=== PATIENT | male | born 1930 | race Caucasian/White ===

== ENCOUNTER 2018-08-02 10:09 | Day surgery (SDC) | payer MEDICARE ==
[2018-08-01 11:15] VITALS: BMI 25.5
[2018-08-02] MEDS ORDERED: PROPOFOL 20 ML ONE (11:12)
[2018-08-02] MEDS ORDERED: PROPOFOL 200 MG/20 ML VIAL ONE (11:14)
[2018-08-02 11:49] LABS: #Eosinphils 0.2 thou/uL (0.0-0.7); #Lymphocytes 0.9 thou/uL (1.20-3.40); #Monocytes 0.5 thou/uL (0.11-0.59); %Basophils 0.5 % (0.0-1.0); %Eosinophils 3.8 % (0.0-10.0); %Lymphocytes 15.8 % (21.0-51.0); %Monocytes 9.5 % (0.0-10.0); %Neutrophils 70.5 % (42.0-75.0); Hemoglobin 14.5 g/dL (14.0-18.0); Mean Corpuscular HGB CONC 33.7 g/dL (32.0-36.0); Mean Corpuscular Hemoglobin 30.3 pg (27.0-31.0); Mean Corpuscular Volume 89.8 fL (78.0-98.0); Mean Platelet Volume 8.2 fL (7.4-10.4); Platelet Count 111 thou/uL (130-400); RBC Distribution Width 13.3 % (11.5-14.5); Red Blood Cell (RBC) Count 4.78 mill/uL (4.70-6.10); White Blood Cell (WBC) Count 5.6 thou/uL (4.8-10.8)
[2018-08-02 11:53] LABS: INR-International Normal Ratio 1.4
[2018-08-02 11:54] LABS: PTT 35.3 SEC (22.9-36.1)
[2018-08-02 12:03] LABS: Anion Gap 13 mmol/L (10-20); BUN (Urea Nitrogen) 25 mg/dL (8.4-25.7); Calc. Creatinine Clearance 54 mL/min (70-130); Calcium 9.8 mg/dL (7.8-10.44); Carbon Dioxide 26 mmol/L (23-31); Chloride 105 mmol/L (98-107); Estimated GFR-MDRD 63; Glucose 109 mg/dL (83-110); Potassium 4.6 mmol/L (3.5-5.1); Sodium 139 mmol/L (136-145)
--- NOTE | 2018-08-02 16:17 | OP ---
DATE OF PROCEDURE: 08/02/2018 PROCEDURES PERFORMED: Known invasive programmed stimulation and arrhythmia paced termination. REASON FOR PROCEDURE: Mr. Soto is an 87-year-old male with prior history of ventricular tachycardia, Bi-V ICD in place, prior cardiomyopathy, who presented with sustained atrial tachycardia/atrial flutter. YARITZA prior to the procedure demonstrates no intracardiac clots, here for ICD guided termination of the arrhythmia. DESCRIPTION OF PROCEDURE: ICD was interrogated, reveals [employer] Viva XT [employer]IOR [employer]ELOPER-D Bi-V ICD. Battery longevity 3.1 years. Lead parameters are adequate, impedance 456, 456, and 475 ohms respectively. LV lead is 2.75 V at 0.5 milliseconds. Good captures in RV and RA leads are seen. The atrial fibrillation is ongoing for about 3 weeks by now. Interrogation arrhythmia reveals cycle length about 240 milliseconds. Burst atrial pacing was delivered at 180 milliseconds, which promptly terminated the atrial tachycardia/flutter and normal sinus rhythm . CONCLUSION: 1. Successful cardioversion with overdrive atrial pacing. 2. Normal function on Bi-V ICD. 3. Reprogramming the ICD performed turning atrial antitachycardia pacing therapies. 4. Routine followup of arrhythmias in the future and continue oral anticoagulation. Job ID: [id number]
--- NOTE | 2018-08-03 15:44 | ECHO ---
REFERRING PHYSICIAN: Dr. Morocho REASON FOR PROCEDURE: The patient is an 87-year-old man who has history of CHF and ischemic cardiomyopathy, prior history o f murmur, SVT, AICD in place. Patient recently developed nonsustained atrial fibrillation/atrial tach ycardia. He has been placed on Eliquis about two weeks ago. He is here for YARITZA to rule out intracardi ac clots. PROCEDURE: The patient received Propofol by Anesthesia specialist. After adequate level of sedation achieved, a standard transesophageal echocardiogram probe was passed into the esophagus without diff iculty. Patient tolerated the procedure well, no complications noted. RESULTS: Left atrium is moderately enlarged about 4.5 cm in horizontal diameter. The left atrial appendage contains no clots. Four out of four pulmonary veins were seen. No stenosis noted. Interatrial septum is mobile with no definite shunt identified. The mitral valve has mild cent ral regurgitation. Left ventricular systolic function is 45-50% estimated. The right sided chambers slightly dilated. Pacemaker/ICD wires were identified in right sided chambers including the CS. No pe ricardial effusion noted. Mild to moderate tricuspid regurgitation is seen. The aortic valve has thre e leaflets without regurgitation or stenosis. The visualized portion of ascending and descending aort a with significant atheroma but no mobile atheroma, aneurysm or dissection is identified. CONCLUSION: 1. No intracardiac clots. 2. Mildly reduced LV systolic function. 3. Mild to moderate tricuspid, mild mitral regurgitation. No other significant valvular heart diseas e seen. 4. ICD wires in right sided chamber in adequate position. PLAN: Proceed with the conversion to sinus rhythm.
== END 2018-08-02 14:40 | disposition home or self-care (01) ==
LOC: CCL 10:09
PROVIDERS: ATTEND Internal Medicine Cardiovascular Disease
PROC: 5A2204Z Restoration of Cardiac Rhythm, Single (ICD-10-PCS; principal; 2018-08-02)
PROC: B24BZZ4 Ultrasonography of Heart with Aorta, Transesophageal (ICD-10-PCS; 2018-08-02)
DX: I47.1 Supraventricular tachycardia (principal); I48.0 Paroxysmal atrial fibrillation; I48.92 Unspecified atrial flutter; I25.10 Atherosclerotic heart disease of native coronary artery without angina pectoris; I25.5 Ischemic cardiomyopathy; I50.22 Chronic systolic (congestive) heart failure; Z85.46 Personal history of malignant neoplasm of prostate; Z95.810 Presence of automatic (implantable) cardiac defibrillator; Z79.01 Long term (current) use of anticoagulants; Z79.82 Long term (current) use of aspirin; Z79.899 Other long term (current) drug therapy
CPT/HCPCS: 80048; 85025; 85610; 85730; 92960; 93312; J2704

== ENCOUNTER 2018-09-15 11:36 | Emergency (ER) | payer MEDICARE ==
[2018-09-15 12:34] LABS: #Eosinphils 0.2 thou/uL (0.0-0.7); #Lymphocytes 0.6 thou/uL (1.20-3.40); #Monocytes 0.5 thou/uL (0.11-0.59); #Neutrophils 5.1 thou/uL (1.40-6.50); %Eosinophils 3.7 % (0.0-10.0); %Lymphocytes 9.8 % (21.0-51.0); %Monocytes 7.2 % (0.0-10.0); %Neutrophils 79.3 % (42.0-75.0); Hemoglobin 13.9 g/dL (14.0-18.0); Mean Corpuscular HGB CONC 35.3 g/dL (32.0-36.0); Mean Corpuscular Hemoglobin 31.1 pg (27.0-31.0); Mean Corpuscular Volume 88.2 fL (78.0-98.0); Mean Platelet Volume 7.9 fL (7.4-10.4); Platelet Count 145 thou/uL (130-400); RBC Distribution Width 13.3 % (11.5-14.5); Red Blood Cell (RBC) Count 4.47 mill/uL (4.70-6.10); White Blood Cell (WBC) Count 6.4 thou/uL (4.8-10.8)
[2018-09-15 12:42] LABS: ALT (SGPT) 14 U/L (8-55); AST (SGOT) 17 U/L (5-34); Albumin 4.4 g/dL (3.4-4.8); Alkaline Phosphatase 69 U/L (40-150); Anion Gap 11 mmol/L (10-20); BUN (Urea Nitrogen) 24 mg/dL (8.4-25.7); Bilirubin, Total 1.2 mg/dL (0.2-1.2); Calc. Creatinine Clearance 0 mL/min (70-130); Carbon Dioxide 27 mmol/L (23-31); Chloride 104 mmol/L (98-107); Estimated GFR-MDRD 60; Globulin 2.2 g/dL (2.4-3.5); Glucose 106 mg/dL (83-110); Potassium 4.4 mmol/L (3.5-5.1); Protein, Total 6.6 g/dL (5.8-8.1); Sodium 138 mmol/L (136-145)
[2018-09-15 12:44] LABS: Blood, Urine Large (Negative); Nitrite Negative (Negative)
[2018-09-15 12:45] LABS: Bilirubin Unable to Interpret (Negative); Clarity Opaque (Clear); Urobilinogen UNABLE TO INTERPRET mg/dL (Less than 2)
[2018-09-15 12:50] LABS: Leukocyte Unable to Interpret (Negative)
[2018-09-15 12:51] LABS: Glucose, Urine (Dipstick) Negative (Negative); Protein, Urine (Dipstick) 100 mg/dL (Neg-Trace)
[2018-09-15 12:53] LABS: RBC/HPF Greater than 50 HPF (0-3)
[2018-09-15 12:54] LABS: Bacteria/HPF None Seen HPF (None Seen); Squamous Epithelial None Seen HPF (0-3); WBC/HPF 0-3 HPF (0-3)
== END 2018-09-15 13:46 | disposition home or self-care (01) ==
LOC: ERS 11:36
DX: R31.9 Hematuria, unspecified (principal); I48.91 Unspecified atrial fibrillation; I25.2 Old myocardial infarction; Z79.899 Other long term (current) drug therapy
CPT/HCPCS: 36415; 80053; 81003; 81015; 85025; 87086; 99283

== ENCOUNTER 2018-10-08 13:17 | Outpatient (CLI) | payer MEDICARE ==
[2018-10-08 15:12] LABS: INR-International Normal Ratio 1.3; PTT 31.8 SEC (22.9-36.1); Prothrombin Time 15.8 SEC (12.0-14.7)
[2018-10-08 15:26] LABS: Anion Gap 15 mmol/L (10-20); BUN (Urea Nitrogen) 22 mg/dL (8.4-25.7); Calc. Creatinine Clearance 0 mL/min (70-130); Calcium 9.4 mg/dL (7.8-10.44); Carbon Dioxide 25 mmol/L (23-31); Chloride 105 mmol/L (98-107); Estimated GFR-MDRD 55; Glucose 105 mg/dL (83-110); Potassium 4.2 mmol/L (3.5-5.1); Sodium 141 mmol/L (136-145)
[2018-10-08 15:40] LABS: Hemoglobin 13.1 g/dL (14.0-18.0); Mean Corpuscular HGB CONC 33.5 g/dL (32.0-36.0); Mean Corpuscular Hemoglobin 29.9 pg (27.0-31.0); Mean Corpuscular Volume 89.4 fL (78.0-98.0); Platelet Count 115 thou/uL (130-400); RBC Distribution Width 13.5 % (11.5-14.5); Red Blood Cell (RBC) Count 4.38 mill/uL (4.70-6.10); White Blood Cell (WBC) Count 5.5 thou/uL (4.8-10.8)
== END 2018-10-08 13:18 | disposition home or self-care (01) ==
LOC: LABBT 13:17
PROVIDERS: ATTEND Internal Medicine Cardiovascular Disease
DX: Z01.818 Encounter for other preprocedural examination (principal); I48.91 Unspecified atrial fibrillation
CPT/HCPCS: 80048; 85027; 85610; 85730; 93005; 93010

== ENCOUNTER 2018-10-14 06:34 | Day surgery (SDC) | payer MEDICARE ==
[2018-10-08 13:47] VITALS: BMI 25.8
[2018-10-14] MEDS ORDERED: PROPOFOL 200 MG/20 ML VIAL ONE (14:31)
--- NOTE | 2018-10-15 13:38 | ECHO ---
REFERRING PHYSICIAN: Dr. Chino Morocho REASON FOR PROCEDURE: The patient is an 87-year-old man with history of ischemic cardiomyopathy, reduced LVED, IDC in place, ventricular tachycardia, paroxysmal atrial fibrillation, status post Watchman device placement on 08/30/18. Is here for a six week post Watchman device placement YARITZA. PROCEDURE: The patient received Propofol by Anesthesia specialist. After adequate level of sedation achieved, a standard transesophageal echocardiogram probe was passed into the esophagus without difficulty. Patient tolerated the procedure well, no complications noted. RESULTS: Left atrium is moderately enlarged about 4.8 cm in horizontal diameter. The left atrial appendage well visualized and has an adequately placed Watchman device in it. Significant opacification noted posterior to the Watchman device with a very small area suboptimally opacified with echo lucency. There is also a very small 0.1 mm leak noted not clearly tracking posterior to the Watchman device. The mitral valve has mild regurgitation. The interatrial septum has a small residual leak at the site of the triseptal puncture. Four out of four pulmonary veins were well seen. LV systolic function is mildly reduced. LV of about 45% noted with segmental wall motion abnormalities. The right sided chambers with ICD wires in appropriate positions. Mild to moderate tricuspid regurgitation without elevated trans TR velocities. No pericardial effusion noted. The aortic valve has three leaflets without regurgitation or stenosis. The pulmonary valve is not well visualized. The visualized portion of ascending and descending aorta without aneurysm, dissection and only mild adherent atheroma noted in the descending aorta. CONCLUSION: 1. Adequately placed Watchman device with tiny leak adjacent the device with some areas of echo lucency posterior to the device also noted suggesting of potential mild flow although not clearly demonstrated posterior device. 2. Mild to moderate reduced LVEF. 3. Mild MT, mild to moderate TR. 4. ICD wires in the right sided chambers. 5. 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 PLAN: Switch from Anticoagulant to aspirin and Plavix. Consider three month YARITZA follow -up. Send CD for review to Dr. Ghotra. CELESTE
== END 2018-10-14 10:13 | disposition home or self-care (01) ==
LOC: CCL 06:34
PROVIDERS: ATTEND Internal Medicine Cardiovascular Disease
PROC: B24BZZ4 Ultrasonography of Heart with Aorta, Transesophageal (ICD-10-PCS; principal; 2018-10-14)
DX: I48.0 Paroxysmal atrial fibrillation (principal); I25.5 Ischemic cardiomyopathy; I70.0 Atherosclerosis of aorta; Z79.01 Long term (current) use of anticoagulants; Z79.82 Long term (current) use of aspirin; Z79.899 Other long term (current) drug therapy; Z95.1 Presence of aortocoronary bypass graft; Z95.5 Presence of coronary angioplasty implant and graft; Z95.810 Presence of automatic (implantable) cardiac defibrillator; Z95.818 Presence of other cardiac implants and grafts
CPT/HCPCS: 93312; J2704

== ENCOUNTER 2018-12-27 09:09 | Inpatient (IN) | payer MEDICARE ==
[2018-12-27 10:40] LABS: ALT (SGPT) 20 U/L (8-55); AST (SGOT) 26 U/L (5-34); Albumin 4.3 g/dL (3.4-4.8); Alkaline Phosphatase 72 U/L (40-110); Anion Gap 8 mmol/L (10-20); BUN (Urea Nitrogen) 21 mg/dL (8.4-25.7); Bilirubin, Total 0.8 mg/dL (0.2-1.2); Calc. Creatinine Clearance 0 mL/min (70-130); Calcium 9.5 mg/dL (7.8-10.44); Carbon Dioxide 32 mmol/L (23-31); Chloride 105 mmol/L (98-107); Estimated GFR-MDRD 55; Glucose 145 mg/dL (83-110); Potassium 4.3 mmol/L (3.5-5.1); Protein, Total 6.3 g/dL (5.8-8.1); Sodium 141 mmol/L (136-145)
[2018-12-27 10:46] LABS: #Eosinphils 0.2 thou/uL (0.0-0.7); #Lymphocytes 0.6 thou/uL (1.20-3.40); #Monocytes 0.4 thou/uL (0.11-0.59); #Neutrophils 5.4 thou/uL (1.40-6.50); %Basophils 0.3 % (0.0-1.0); %Eosinophils 2.3 % (0.0-10.0); %Neutrophils 82.4 % (42.0-75.0); Eosinophils 4 % (0-10); Hemoglobin 13.9 g/dL (14.0-18.0); Lymphocytes 8 % (21-51); MDiff Complete? YES; Mean Corpuscular HGB CONC 33.5 g/dL (32.0-36.0); Mean Corpuscular Hemoglobin 29.5 pg (27.0-31.0); Mean Corpuscular Volume 88.1 fL (78.0-98.0); Monocytes 3 % (0-10); Neutrophil 85 % (42-75); Platelet Count 114 thou/uL (130-400); Platelet Morphology Comment Appears Decreased; RBC Distribution Width 13.3 % (11.5-14.5); RBC Morphology Normal; Red Blood Cell (RBC) Count 4.69 mill/uL (4.70-6.10); White Blood Cell (WBC) Count 6.6 thou/uL (4.8-10.8)
--- NOTE | 2018-12-27 12:09 | CT ---
CT Brain WO Con HISTORY: Fall with head injury COMPARISON: None. FINDINGS: There is generalized ventricular and sulcal prominence. There are no signs of intracerebral hemorrhage or extra-axial fluid collections. The mastoid air cells and visualized sinuses are clear. IMPRESSION: No acute intracranial abnormalities.
--- NOTE | 2018-12-27 12:17 | CT ---
Exam: CT cervical spine without contrast HISTORY: Trauma. Pain. COMPARISON: None FINDINGS: No craniocervical dissociation. Appropriate alignment of the lateral masses of C1 and C2. Intact odon toid process Appropriate alignment of the facets. Straightening of normal cervical lordosis may be due to patient position, muscle spasm or cervical co llar. Soft tissue neck structures: No mass, lymphadenopathy or hematoma. No prevertebral soft tissue swelli ng. Upper mediastinum and lung apices: Probable chronic emphysematous changes lung apices. Thyroid gland: Mild heterogeneity. Consider nonemergent thyroid ultrasound. Central spinal canal: There are varying degrees of central canal stenosis and neural foraminal narrow ing on the basis of degenerative change. Evaluation is limited by technique. Vertebral bodies: Cervical spine vertebral body height is maintained. No fracture. IMPRESSION: 1. No cervical spine fracture 2. Straightening of normal cervical lordosis. There is concern for ligamentous injury, consider MRI
[2018-12-27] MEDS ORDERED: Amiodarone 150 MG/3 ML VIAL ONE (13:16)
[2018-12-27] MEDS ORDERED: Amiodarone 450 MG, Admixture Fee 1 EACH in Dextrose 5% in Water 250 ML IVPB SCH (13:30)
[2018-12-27 14:37] LABS: CKMB 13.3 ng/mL (0-6.6)
--- NOTE | 2018-12-27 15:29 | HP ---
PRIMARY CARE PHYSICIAN: Dr. Mike Heart. REASON FOR ADMISSION: Cardiogenic syncope. HISTORY OF PRESENT ILLNESS: An 88-year-old male, who has underlying history of cardiomyopathy with AICD in place, who was brought to emergency room for syncopal episode. The patient has cardiomyopathy with EF 25% and is following Dr. Morocho. As per the patient, he had a cardiac arrest, and subsequently, he required defibrillator placement several years ago and never had any problem. Last night, the patient had one episode of syncope, and he fell down from his bed on the floor. This morning, he had similar episode and he passed out and he had a shock by his defibrillator. Subsequently, he was feeling weak. He was experiencing some vague chest discomfort. The patient does not have any good recollection of event, but subsequently, he was brought to ER. In the emergency room, his AICD was interrogated, and he was found with multiple episodes of ventricular tachycardia and ventricular fibrillation. Cardiology was notified as well as Electrophysiology was notified from the ER, and subsequently, we are admitting this patient to telemetry floor for further evaluation and treatment. Routine blood test showed mild thrombocytopenia and significantly elevated troponin. The patient is hemodynamically stable in the emergency room. REVIEW OF SYSTEMS: CONSTITUTIONAL: Negative for weight loss or gain, ability to conduct usual activities. SKIN: Negative for rash, itching. EYES: Negative for double vision, pain. ENT/MOUTH: Negative for nose bleeding, neck stiffness, pain, tenderness. CARDIOVASCULAR: Negative for palpitations, dyspnea on exertion, orthopnea. RESPIRATORY: Negative for shortness of breath, wheezing, cough, hemoptysis, fever or night sweats. GASTROINTESTINAL: Negative for poor appetite, abdominal pain, heartburn, nausea, vomiting, constipation, or diarrhea. GENITOURINARY: Negative for urgency, frequency, dysuria, nocturia. MUSCULOSKELETAL: Negative for pain, swelling. NEUROLOGIC/PSYCHIATRIC: Negative for anxiety, depression. ALLERGY/IMMUNOLOGIC: Negative for skin rash, bleeding tendency. Please see my HPI for pertinent positives and negatives. All other review of systems reviewed and negative except as mentioned in HPI. PAST MEDICAL HISTORY: Coronary artery disease, history of CABG, cardiomyopathy with EF 25%, AICD in place, peripheral vascular disease, hypertension, history of prostate cancer treated with radiation, and dyslipidemia. PAST SURGICAL HISTORY: Coronary artery bypass grafting in 1989, AICD placement and replaced several times, inguinal hernia repair, laparoscopic appendicectomy, coronary catheterization and stent placement, femoral artery stent placement, and cataract surgery. PAST PSYCHIATRIC HISTORY: Reviewed and negative. ALLERGIES: NO KNOWN DRUG ALLERGIES. SOCIAL HISTORY: The patient is . His is present at bedside. They have four kids. He quit smoking 30 years ago. He drinks alcohol in the form of wine occasionally. He denies any other illicit drug abuse. FAMILY HISTORY: Coronary artery disease to both parents, and they in their young age from heart attack. Sisters and brother also from coronary artery disease. EMERGENCY ROOM COURSE: Reviewed. The patient is starting amiodarone drip. CURRENT HOME MEDICATIONS: 1. Coreg 25 mg twice daily. 2. Zocor 10 mg p.o. daily. 3. Lasix 40 mg daily. 4. Digoxin 125 mcg daily. 5. Plavix 75 mg daily. PHYSICAL EXAMINATION: VITAL SIGNS: On arrival, blood pressure 132/76, pulse 78, respiratory rate 18, temperature 98.2, and saturation 99% on room air. Weight 81 kg. GENERAL: The patient is currently alert and awake, in no obvious acute distress. HEENT: Head, normocephalic and atraumatic. Eyes, pupils are round and reactive to light. Extraocular muscles intact. ENT, oropharynx within normal limits. Moist mucous membranes. No oral lesion. No pharyngeal erythema. No exudate. NECK: Supple. No JVD. No thyromegaly. No carotid bruit. No jugular venous distention. LUNGS: Clear to auscultation without any rhonchi or rales. CARDIAC: S1 and S2. Appears regular without any murmur. No gallop. No rub. ABDOMEN: Soft, bowel sounds present. Nontender. Nondistended. No organomegaly. No mass. No suprapubic tenderness. BACK: Unremarkable. No CVA tenderness. EXTREMITIES: Upper extremities, passive movement of all joints is normal. Lower extremities, no edema. Good distal pulsation. SKIN: No skin rash. HEMATOLOGICAL SYSTEM: No lymphadenopathy. NEUROLOGIC: Nonfocal examination. SIGNIFICANT LABORATORY DATA: EKG showing pacemaker rhythm. CT brain based on my review, no acute intracranial process. CT cervical spine, no fracture or dislocation. Straightening of normal cervical lordosis. CBC; WBC 6.6, hemoglobin 13.9, and platelets 114. BMP; sodium 141, potassium 4.3, chloride 105, carbon dioxide 32, anion gap 8, BUN 21, creatinine 1.25, glucose 145, and calcium 9.5. LFT; protein 6.3, albumin 4.3, alkaline phosphatase 72, AST 26, ALT 20, CK-MB 13.3, troponin 1.203. Magnesium 2.3. TSH 1.77. ASSESSMENT AND PLAN: 1. Cardiogenic syncope due to ventricular tachycardia and ventricular fibrillation, status post AICD firing, recurrent episode. 2. Type 2 myocardial infarction. 3. History of cardiomyopathy with AICD in place. 4. Coronary artery disease with history of coronary artery bypass grafting. 5. Hypertension. 6. Dyslipidemia. 7. Thrombocytopenia. PLAN: 1. Full admission to telemetry floor. Cardiology consultation, electrophysiology consultation, amiodarone drip per protocol. After verification of his home medication, we will resume his home medication. Further investigation and treatment will defer to Cardiology. We will do serial cardiac enzymes x3. We will obtain echocardiography to assess EF and other structural abnormality. 2. Code status. The patient is full code. The patient's is surrogate decision maker. 3. DVT prophylaxis. Based on the patient's home medication, we will decide whether the patient is on Eliquis therapy or not. If not, then we will start Lovenox for DVT prophylaxis. 4. GI prophylaxis. Pepcid 20 mg p.o. b.i.d. DISPOSITION PLAN: Based on clinical course, we are expecting the patient's stay in hospital more than 2 midnights. Plan of care discussed with the patient in detail. Job ID: [id number]
[2018-12-27] MEDS ORDERED: Diabetic Tussin 200 MG/10 ML UDCUP PO PRN (16:17)
[2018-12-27] MEDS ORDERED: Metoclopramide HCl 10 MG/2 ML VIAL IVP PRN (16:17)
[2018-12-27] MEDS ORDERED: Nitroglycerin 0.4 MG TAB (25 Tab Bottle) SL PRN (16:17)
[2018-12-27] MEDS ORDERED: Cepastat Lozenges 1 LOZ PO PRN (16:17)
[2018-12-27] MEDS ORDERED: Zolpidem Tartrate 5 MG TAB PO PRN (16:17)
[2018-12-27] MEDS ORDERED: Senokot S 8.6-50 MG TAB PO PRN (16:17)
[2018-12-27] MEDS ORDERED: HYDROcodone/Acetaminophen 5/325 mg Tablet PO PRN (16:17)
[2018-12-27] MEDS ORDERED: Calcium Carbonate 500 MG ChewTAB PO PRN (16:17)
[2018-12-27] MEDS ORDERED: Labetalol HCl 100 MG/20 ML VIAL SLOW IVP PRN (16:17)
[2018-12-27] MEDS ORDERED: Loratadine 10 MG TAB PO PRN (16:17)
[2018-12-27] MEDS ORDERED: Bisacodyl 10 MG SUPP PR PRN (16:17)
[2018-12-27] MEDS ORDERED: Loperamide HCl 2 MG CAP PO PRN (16:17)
[2018-12-27] MEDS ORDERED: Sodium Chloride 0.65% Nasal 44 ML BOT EA NARE PRN (16:17)
[2018-12-27] MEDS ORDERED: Acetaminophen 325 MG TAB PO PRN (16:17)
[2018-12-27 16:38] VITALS: BMI 25.7
--- NOTE | 2018-12-27 19:39 | CON ---
DATE OF CONSULTATION: 12/27/2018 PRIMARY DIRECTOR MARKETING COMMUNICATIONS: Chino Morocho M.D. REASON FOR CONSULTATION: Ventricular tachycardia and fibrillation. HISTORY OF PRESENT ILLNESS: Mr. Soto is a very pleasant 88-year-old white gentleman, who comes to the hospital for syncope. He has an AICD for ischemic cardiomyopathy and had several defibrillator shocks delivered. Last night, he had an episode of syncope. He fell down on the bed on the floor similar episode earlier this morning, had a shock given by his defibrillator. AICD interrogated and had multiple VT and episodes of VF where he received shocks and several more where he received antitachycardia pacing. Successfully getting him back into sinus rhythm. He denies any chest pain, tightness, or pressure. He has had episodes of VT in the past, but they are related to sotalol therapy. Currently, he is not on any antiarrhythmics. PAST MEDICAL HISTORY: 1. Coronary artery disease. 2. Status post CABG. 3. Ischemic cardiomyopathy with an EF of 25%. 4. AICD in place. 5. Peripheral vascular disease. 6. Hypertension. 7. History of prostate cancer, treated with radiation. 8. Hyperlipidemia. PAST SURGICAL HISTORY: 1. CABG in 1988 x4. Most recent heart catheterization that I can find on file is in 1992. He had a vein graft to the right, which was patent, vein graft to an OM1 was patent, vein graft to an OM2 was patent and the LIRA to the LAD was patent. His [place] right was occluded. His [place] OM1 and OM2 was occluded and the LAD was 70% stenosis. 2. AICD placement. 3. Inguinal hernia repair. 4. Laparoscopic appendectomy. 5. A femoral artery stent placement. 6. Cataract surgery. SOCIAL HISTORY: at bedside. Quit smoking 30 years ago. Social alcohol use. No drug use. FAMILY HISTORY: Noncontributory at this age. OUTPATIENT MEDICATIONS: 1. Carvedilol 25 mg b.i.d. 2. Zocor 10 mg a day. 3. Lasix 40 mg a day. 4. Digoxin 125 mcg a day. 5. Plavix 75 mg a day. 6. Entresto 49/51 mg b.i.d. 7. Aspirin 81 a day. 8. CoQ10 200 mg daily. REVIEW OF SYSTEMS: A 12-point review of systems was done, negative unless stated in the history of present illness. PHYSICAL EXAMINATION: VITAL SIGNS: Temperature 97.4, pulse 78, respiratory rate 18, saturating 100% on room air, blood pressure 126/72. GENERAL: Awake, alert, oriented x3. No distress. HEENT: Normocephalic and atraumatic. NECK: Supple. LUNGS: Clear. CARDIOVASCULAR: S1 and S2. No S3 or S4. There is a grade 2/3 systolic murmur at the right upper sternal border. ABDOMEN: Soft, positive bowel sounds. EXTREMITIES: There is a trace edema. SKIN: Warm and dry. LABORATORY DATA: Laboratory work was reviewed. White count of 6, hemoglobin of 13, hematocrit 41, platelet count 114. Chemistries were unremarkable. Troponin was 1.2 and now up to 1.3. TSH is 1.7. ASSESSMENT AND PLAN: 1. Syncope. 2. Ventricular tachycardia and ventricular fibrillation, status post automated implantable cardioverter defibrillator therapy delivered. 3. Smw-PR-dagpzucxg myocardial infarction. 4. Coronary artery disease. 5. Ischemic cardiomyopathy with ejection fraction of 25%. PLAN: 1. Certainly needs an ischemic evaluation with a heart catheterization. We spoke at length about the risks and benefits of the procedure. Risks included, but not limited to stroke, [place], , bleeding, need for blood transfusion, limb loss, organ loss, need for emergent bypass surgery, the patient verbalized understanding of this and agrees to proceed. Right groin access given history of bypass grafting in the past. Would be looking for history for 3 vein grafts and a LIRA to the LAD, vein to the right, a vein to an OM1 and a vein to an OM2. 2. Further recommendations per results of coronary angiogram. 3. Agree with continued amiodarone drip to prevent more VT or VF. 4. We will follow. Job ID: [id number] [facility]
[2018-12-27 20:27] LABS: Troponin I 1.532 ng/mL (< 0.028)
[2018-12-28 05:09] LABS: #Eosinphils 0.2 thou/uL (0.0-0.7); #Lymphocytes 0.7 thou/uL (1.20-3.40); #Monocytes 0.5 thou/uL (0.11-0.59); #Neutrophils 5.5 thou/uL (1.40-6.50); %Basophils 0.5 % (0.0-1.0); %Eosinophils 2.9 % (0.0-10.0); %Monocytes 7.6 % (0.0-10.0); %Neutrophils 78.9 % (42.0-75.0); Hemoglobin 12.5 g/dL (14.0-18.0); Mean Corpuscular Hemoglobin 30.5 pg (27.0-31.0); Mean Corpuscular Volume 87.2 fL (78.0-98.0); Mean Platelet Volume 7.8 fL (7.4-10.4); Platelet Count 102 thou/uL (130-400); RBC Distribution Width 13.3 % (11.5-14.5); Red Blood Cell (RBC) Count 4.11 mill/uL (4.70-6.10)
[2018-12-28 05:14] LABS: Anion Gap 13 mmol/L (10-20); BUN (Urea Nitrogen) 23 mg/dL (8.4-25.7); Calc. Creatinine Clearance 51 mL/min (70-130); Calcium 8.9 mg/dL (7.8-10.44); Carbon Dioxide 21 mmol/L (23-31); Chloride 107 mmol/L (98-107); Estimated GFR-MDRD 60; Glucose 108 mg/dL (83-110); Potassium 4.1 mmol/L (3.5-5.1); Sodium 137 mmol/L (136-145)
[2018-12-28] MEDS: Famotidine 20 MG TAB PO SCH (09:22)
--- NOTE | 2018-12-28 11:14 | PDOC.HOSPP ---
- Subjective Encounter Date: 12/28/18 Encounter Time: 09:00 - Objective Vital Signs & Weight: Vital Signs (12 hours) Temp Pulse Resp BP Pulse Ox 12/28/18 07:44 98.6 F 70 18 104/52 L 95 12/28/18 07:35 95 12/28/18 04:00 97.6 F 78 20 105/68 98 Weight Weight 179 lb I&O: 12/27/18 12/28/18 12/29/18 06:59 06:59 06:59 Intake Total 425 Balance 425 Result Diagrams: 12/28/18 04:36 12/28/18 04:36 Hospitalist ROS - Medication Medications: Active Medications Generic Name Dose Route Start Last Admin Trade Name Freq PRN Reason Stop Dose Admin Famotidine 20 mg 12/28/18 09:00 12/28/18 09:22 Pepcid PO 20 mg DAILY MARIUM Administration Amiodarone HCl 450 mg/ 259 mls @ 0 mls/hr 12/27/18 16:17 12/28/18 00:00 Dextrose/Water IVPB 259 mls INF MARIUM Administration Protocol Per Protocol - Exam General Appearance: NAD Neck: no JVD Heart: RRR Respiratory: CTAB Gastrointestinal: soft Extremities: no edema Neurological: no focal deficits Psychiatric: normal affect Hosp A/P (1) Syncope, cardiogenic Code(s): R55 - SYNCOPE AND COLLAPSE Status: Acute Plan: Due to V-tach.. (2) Cardiomyopathy Code(s): I42.9 - CARDIOMYOPATHY, UNSPECIFIED Status: Acute (3) CAD (coronary artery disease) Code(s): I25.10 - ATHSCL HEART DISEASE OF [place] CORONARY ARTERY W/O ANG PCTRS Status: Acute (4) HTN (hypertension) Code(s): I10 - ESSENTIAL (PRIMARY) HYPERTENSION Status: Acute (5) Thrombocytopenia Code(s): D69.6 - THROMBOCYTOPENIA, UNSPECIFIED Status: Acute (6) Thrombocytopenia Code(s): D69.6 - THROMBOCYTOPENIA, UNSPECIFIED Status: Acute Plan: Etiology unclear.. Patient is not on heparin.. - Plan On Amniodarone drip.. Had AICD in the past.. f/u with cardiology.
[2018-12-28] MEDS: Amiodarone 450 MG in Dextrose 5% in Water 250 ML IVPB SCH ×2 (14:04)
--- NOTE | 2018-12-28 17:44 | PDOC.CPN ---
- Subjective Date: 12/28/18 Time: 17:42 Interval history: No new issues. He has not had any more episodes of VT or VF. - Review of Systems General: denies: fever/chills, weight/appetite/sleep changes, night sweats, fatigue Respiratory: denies: cough, congestion, shortness of breath, exercise intolerance Cardiovascular: denies: chest pain, palpitation, edema, paroxysmal nocturnal dyspnea, orthopnea Gastrointestinal: denies: nausea, vomiting, diarrhea, constipation, abd pain, GI bleeding Musculoskeletal: denies: pain, tenderness, stiffness, swelling, arthritis/ arthralgias Neurological: denies: numbness, syncope, seizure, weakness - Objective Allergies/Adverse Reactions: Allergies Allergy/AdvReac Type Severity Reaction Status Date / Time No Known Drug Allergies Allergy Verified 10/08/18 13:42 Visit Medications: Current Medications Acetaminophen (Tylenol) 650 mg PO Q4H PRN PRN Reason: Headache/Fever/Mild Pain (1-3) Hydrocodone Bitart/Acetaminophen ([place] 5/325) 1 tab PO Q4H PRN PRN Reason: Moderate Pain (4-6) Bisacodyl (Dulcolax) 10 mg SD DAILYPRN PRN PRN Reason: Constipation Calcium Carbonate (Tums) 1,000 mg PO Q4H PRN PRN Reason: Heartburn or Indigestion Famotidine (Pepcid) 20 mg PO DAILY [facility] Last Admin: 12/28/18 09:22 Dose: 20 mg Guaifenesin (Robitussin Sf) 200 mg PO Q4H PRN PRN Reason: Cough Amiodarone HCl 450 mg/ (Dextrose/Water) 259 mls @ 0 mls/hr IVPB INF [facility]; Protocol Last Admin: 12/28/18 14:04 Dose: 259 mls Labetalol HCl (Normodyne) 10 mg SLOW IVP Q4H PRN PRN Reason: SBP > 180 and HR >/= 70 Loperamide HCl (Imodium) 2 mg PO PRN PRN PRN Reason: Diarrhea/Loose Stools Loratadine (Claritin) 10 mg PO DAILYPRN PRN PRN Reason: Sinus Symptoms Metoclopramide HCl (Reglan) 5 mg IVP Q4H PRN PRN Reason: Nausea Nitroglycerin (Nitrostat) 0.4 mg SL Q5MIN PRN PRN Reason: Chest Pain Senna/Docusate Sodium (Senokot S) 2 tab PO BIDPRN PRN PRN Reason: Constipation Sodium Chloride ([place] Nasal [place] 0.65%) 0 ml EA NARE QIDPRN PRN PRN Reason: Nasal Congestion Throat Lozenges (Cepastat Lozenges) 1 paula PO Q2H PRN PRN Reason: Sore Throat Zolpidem Tartrate (Ambien) 5 mg PO HSPRN PRN PRN Reason: Insomnia Vital Signs & Weight: Vital Signs Temp Pulse Resp BP BP Pulse Ox 12/28/18 16:20 97.7 F 71 16 115/62 99 12/28/18 12:11 97.6 F 71 14 111/60 98 12/28/18 07:44 98.6 F 70 18 104/52 L 95 12/28/18 07:35 95 Weight 179 lb - Physical Exam General: alert & oriented x3, no apparent distress HEENT: mucus membranes moist Neck: supple neck, midline trachea Cardiac: regular rate and rhythm, no murmur Lungs: clear to auscultation Neuro: grossly intact Abdomen: active bowel sounds, soft, non-tender Extremities: no edema Skin: clear Musculoskeletal: no pain - Labs Result Diagrams: 12/28/18 04:36 12/28/18 04:36 Troponin/CKMB CK-MB (CK-2) 13.3 ng/mL (0-6.6) H* 12/27/18 13:22 Troponin I 1.532 ng/mL (< 0.028) H* 12/27/18 19:49 - Telemetry Sinus rhythms and dysrhythmias: sinus rhythm - Assessment/Plan Assessment/Plan: 1. Syncope 2. VT s/p multiple AICD shocks, appropriate. 3. CAD 4. NSTEMI 5. Ischemic CM Ef at 25% PLAN: - Continue amiodarone drip. - Plan to do [facility] sunday to evaluate for ischemia.
[2018-12-29] MEDS: Amiodarone 450 MG in Dextrose 5% in Water 250 ML IVPB SCH ×2 (05:14→19:10)
[2018-12-29] MEDS: Famotidine 20 MG TAB PO SCH (09:26)
--- NOTE | 2018-12-29 09:53 | PDOC.HOSPP ---
- Subjective Encounter Date: 12/29/18 Encounter Time: 09:00 Subjective: No new complaint. - Objective Vital Signs & Weight: Vital Signs (12 hours) Temp Pulse Resp BP Pulse Ox 12/29/18 07:42 97.9 F 80 18 130/66 95 12/29/18 07:20 95 12/29/18 04:44 98 F 84 16 140/79 97 Weight Weight 180 lb 2 oz I&O: 12/28/18 12/29/18 12/30/18 06:59 06:59 06:59 Intake Total 425 1443 Output Total 890 Balance 425 553 Result Diagrams: 12/28/18 04:36 12/28/18 04:36 Hospitalist ROS - Medication Medications: Active Medications Generic Name Dose Route Start Last Admin Trade Name Robin PRN Reason Stop Dose Admin Famotidine 20 mg 12/28/18 09:00 12/29/18 09:26 Pepcid PO 20 mg DAILY MARIUM Administration Amiodarone HCl 450 mg/ 259 mls @ 0 mls/hr 12/27/18 16:17 12/29/18 05:14 Dextrose/Water IVPB 259 mls INF MARIUM Administration Protocol Per Protocol - Exam Neck: no JVD Heart: RRR Respiratory: CTAB Gastrointestinal: soft Extremities: no edema Neurological: no focal deficits Psychiatric: normal affect Hosp A/P (1) Syncope, cardiogenic Code(s): R55 - SYNCOPE AND COLLAPSE Status: Acute (2) Cardiomyopathy Code(s): I42.9 - CARDIOMYOPATHY, UNSPECIFIED Status: Acute (3) CAD (coronary artery disease) Code(s): I25.10 - ATHSCL HEART DISEASE OF [place] CORONARY ARTERY W/O ANG PCTRS Status: Acute (4) HTN (hypertension) Code(s): I10 - ESSENTIAL (PRIMARY) HYPERTENSION Status: Acute (5) Thrombocytopenia Code(s): D69.6 - THROMBOCYTOPENIA, UNSPECIFIED Status: Acute (6) Thrombocytopenia Code(s): D69.6 - THROMBOCYTOPENIA, UNSPECIFIED Status: Acute - Plan On Amniodarone drip.. Had AICD in the past.. Follow up with cardiology. Platelet is low...f/u plt.
--- NOTE | 2018-12-29 18:23 | PDOC.CPN ---
- Subjective Date: 12/29/18 Time: 18:22 Interval history: No new issues. No VT or VF. No chest pain. - Review of Systems General: denies: fever/chills, weight/appetite/sleep changes, night sweats, fatigue Respiratory: denies: cough, congestion, shortness of breath, exercise intolerance Cardiovascular: denies: chest pain, palpitation, edema, paroxysmal nocturnal dyspnea, orthopnea Gastrointestinal: denies: nausea, vomiting, diarrhea, constipation, abd pain, GI bleeding Musculoskeletal: denies: pain, tenderness, stiffness, swelling, arthritis/ arthralgias Neurological: denies: numbness, syncope, seizure, weakness - Objective Allergies/Adverse Reactions: Allergies Allergy/AdvReac Type Severity Reaction Status Date / Time No Known Drug Allergies Allergy Verified 10/08/18 13:42 Visit Medications: Current Medications Acetaminophen (Tylenol) 650 mg PO Q4H PRN PRN Reason: Headache/Fever/Mild Pain (1-3) Hydrocodone Bitart/Acetaminophen ([place] 5/325) 1 tab PO Q4H PRN PRN Reason: Moderate Pain (4-6) Aspirin (Ecotrin) 81 mg PO DAILY [facility] Bisacodyl (Dulcolax) 10 mg [place] DAILYPRN PRN PRN Reason: Constipation Calcium Carbonate (Tums) 1,000 mg PO Q4H PRN PRN Reason: Heartburn or Indigestion Clopidogrel Bisulfate (Plavix) 75 mg PO DAILY [facility] Famotidine (Pepcid) 20 mg PO DAILY [facility] Last Admin: 12/29/18 09:26 Dose: 20 mg Guaifenesin (Robitussin Sf) 200 mg PO Q4H PRN PRN Reason: Cough Amiodarone HCl 450 mg/ (Dextrose/Water) 259 mls @ 0 mls/hr IVPB INF [facility]; Protocol Last Admin: 12/29/18 05:14 Dose: 259 mls Labetalol HCl (Normodyne) 10 mg SLOW IVP Q4H PRN PRN Reason: SBP > 180 and HR >/= 70 Loperamide HCl (Imodium) 2 mg PO PRN PRN PRN Reason: Diarrhea/Loose Stools Loratadine (Claritin) 10 mg PO DAILYPRN PRN PRN Reason: Sinus Symptoms Memantine (Namenda) 5 mg PO DAILY [facility] Metoclopramide HCl (Reglan) 5 mg IVP Q4H PRN PRN Reason: Nausea Nitroglycerin (Nitrostat) 0.4 mg SL Q5MIN PRN PRN Reason: Chest Pain Senna/Docusate Sodium (Senokot S) 2 tab PO BIDPRN PRN PRN Reason: Constipation Simvastatin (Zocor) 10 mg PO HS [facility] Sodium Chloride ([place] Nasal [place] 0.65%) 0 ml EA NARE QIDPRN PRN PRN Reason: Nasal Congestion Throat Lozenges (Cepastat Lozenges) 1 paula PO Q2H PRN PRN Reason: Sore Throat Zolpidem Tartrate (Ambien) 5 mg PO HSPRN PRN PRN Reason: Insomnia Vital Signs & Weight: Vital Signs Temp Pulse Resp BP BP Pulse Ox 12/29/18 16:00 98.1 F 89 18 127/82 98 12/29/18 12:00 97.8 F 75 16 115/58 L 98 12/29/18 07:42 97.9 F 80 18 130/66 95 12/29/18 07:20 95 Weight 180 lb 2 oz - Physical Exam General: alert & oriented x3 HEENT: mucus membranes moist Neck: supple neck Cardiac: regular rate and rhythm Lungs: normal breath sounds Neuro: grossly intact Abdomen: active bowel sounds, soft, non-tender Extremities: no edema Skin: clear Musculoskeletal: no pain - Labs Result Diagrams: 12/28/18 04:36 12/28/18 04:36 Troponin/CKMB CK-MB (CK-2) 13.3 ng/mL (0-6.6) H* 12/27/18 13:22 Troponin I 1.532 ng/mL (< 0.028) H* 12/27/18 19:49 - Telemetry Sinus rhythms and dysrhythmias: other (V paced.) - Assessment/Plan Assessment/Plan: 1. Syncope 2. VT s/p multiple AICD shocks, appropriate. 3. CAD 4. NSTEMI 5. Ischemic CM Ef at 25% PLAN: - Continue amiodarone drip. - Plan to do [facility] Sunday to evaluate for ischemia by Dr. Morocho.
[2018-12-29] MEDS ORDERED: Communication Order-Pharmacy FS SCH (18:45)
[2018-12-29] MEDS: Simvastatin 5 MG TAB PO SCH (20:31)
[2018-12-29 20:36] LABS: Anion Gap 13 mmol/L (10-20); BUN (Urea Nitrogen) 16 mg/dL (8.4-25.7); Calc. Creatinine Clearance 56 mL/min (70-130); Calcium 9.1 mg/dL (7.8-10.44); Carbon Dioxide 21 mmol/L (23-31); Chloride 106 mmol/L (98-107); Estimated GFR-MDRD 67; Glucose 126 mg/dL (83-110); Potassium 4.4 mmol/L (3.5-5.1); Sodium 136 mmol/L (136-145)
[2018-12-29 20:53] LABS: Bacteria/HPF None Seen HPF (None Seen); Bilirubin Negative (Negative); Blood, Urine Trace (Negative); Clarity Clear (Clear); Glucose, Urine (Dipstick) 30 mg/dL (Negative); Leukocyte Negative Leu/uL (Negative); Nitrite Negative (Negative); Protein, Urine (Dipstick) 10 mg/dL (Neg-Trace); RBC/HPF 0-3 HPF (0-3); Squamous Epithelial None Seen HPF (0-3); WBC/HPF 0-3 HPF (0-3)
[2018-12-29 21:02] LABS: Urine Culture Reflex No No
[2018-12-29] MEDS: Sodium Chloride 0.9% 500 ML IV SCH ×2 (22:55→23:40)
[2018-12-30] MEDS ORDERED: Sodium Chloride 0.9% 500 ML IV SCH (00:01)
[2018-12-30 06:14] LABS: Anion Gap 12 mmol/L (10-20); BUN (Urea Nitrogen) 16 mg/dL (8.4-25.7); Calc. Creatinine Clearance 63 mL/min (70-130); Calcium 9.1 mg/dL (7.8-10.44); Carbon Dioxide 22 mmol/L (23-31); Chloride 106 mmol/L (98-107); Estimated GFR-MDRD 77; Glucose 133 mg/dL (83-110); Potassium 4.2 mmol/L (3.5-5.1); Sodium 136 mmol/L (136-145)
[2018-12-30] MEDS ORDERED: Lidocaine 1% (PF) 30 ML VIAL ONE (07:02)
[2018-12-30] MEDS ORDERED: Fentanyl 100 MCG/2 ML VIAL ONE (07:04)
[2018-12-30] MEDS ORDERED: Heparin 10,000 UNITS/1 ML VIAL ONE (07:04)
[2018-12-30] MEDS ORDERED: Midazolam HCl 2 mg/2 ml Vial ONE (07:04)
[2018-12-30 07:09] LABS: #Eosinphils 0.1 thou/uL (0.0-0.7); #Lymphocytes 0.5 thou/uL (1.20-3.40); #Monocytes 0.8 thou/uL (0.11-0.59); #Neutrophils 7.5 thou/uL (1.40-6.50); %Basophils 0.2 % (0.0-1.0); %Eosinophils 1.3 % (0.0-10.0); %Lymphocytes 5.9 % (21.0-51.0); %Monocytes 9.3 % (0.0-10.0); %Neutrophils 83.4 % (42.0-75.0); Hemoglobin 12.2 g/dL (14.0-18.0); Mean Corpuscular HGB CONC 32.4 g/dL (32.0-36.0); Mean Corpuscular Hemoglobin 28.2 pg (27.0-31.0); Mean Corpuscular Volume 87.1 fL (78.0-98.0); Platelet Count 100 thou/uL (130-400); RBC Distribution Width 13.8 % (11.5-14.5); Red Blood Cell (RBC) Count 4.33 mill/uL (4.70-6.10)
[2018-12-30] MEDS ORDERED: Communication Order-Pharmacy FS SCH (07:15)
[2018-12-30] MEDS ORDERED: Sodium Chloride 0.9% 1,000 ML IV SCH ×2 (07:15→09:47)
--- NOTE | 2018-12-30 07:47 | CON ---
DATE OF CONSULTATION: 12/27/2018 This is a consultation performed by Dr. Gonzalo Manuel and this report is dictated as scribe. REASON FOR CONSULTATION: ICD shock and ventricular arrhythmias. SUPERVISOR [employer]: Chino Morocho MD HISTORY OF PRESENT ILLNESS: Mr. Soto is an 88-year-old gentleman, well known to our practice for history of dilated cardiomyopathy in addition to both atrial and ventricular arrhythmias. He underwent implantation of a [employer]-ICD in 2016, and he has a history of monomorphic ventricular tachycardia. His atrial fibrillation at this point is paroxysmal without antiarrhythmic therapy, and he did undergo cardioversion in July 2018, but has had minimal arrhythmia burden since that time. His ventricular arrhythmias have been quiescent without antiarrhythmic therapy as well until the past 24 hours. He received a shock and Girma monitoring notified our practice. Tracing revealed ventricular fibrillation, appropriately treated with an ICD shock restoring sinus rhythm. We called his office and the patient was feeling fine at that time. We encouraged him to go to emergency room if he felt unstable, had recurrent shocks. He did experience 3 more shocks and went to the emergency room for evaluation. He denies any heart racing palpitations preceding events before feeling the first shock. He does not recall all of the ICD discharges. He has not had any fluid overload or congestive heart failure symptoms. He does endorse having a low-grade fever last week, which has long since resolved and did not require any evaluation or medical treatment. He has not had any nausea, vomiting, or diarrhea. He feels he is in his usual state of health as does his . REVIEW OF SYSTEMS: A 12-point review of systems was performed, is negative except that listed above in the HPI. PAST MEDICAL HISTORY: 1. Monomorphic ventricular tachycardia. 2. Left bundle-branch block. 3. ASCVD with prior coronary artery bypass grafting. 4. Dilated cardiomyopathy with severely reduced left ventricular ejection fraction. 5. Persistent atrial fibrillation, status post cardioversion on 07/23/2018. 6. Prostate cancer. 7. Sinus node dysfunction. 8. Chronic systolic heart failure. 9. Left atrial appendage closure performed on 09/05/2018 with a Watchman protocol. YARITZA performed on 10/14/2018, showed an adequately close left atrial appendage and Watchman is well-seated. Okay to transition to Plavix and aspirin. ALLERGIES: NO KNOWN DRUG ALLERGIES. HOME MEDICATIONS: 1. Simvastatin 10 mg daily. 2. CoQ10 daily. 3. Memantine 5 mg daily. 4. Furosemide 40 mg daily. 5. Digoxin 125 mcg daily. 6. Aspirin 81 mg daily. 7. Coreg 25 mg p.o. b.i.d. 8. Lasix 40 mg daily. 9. Entresto 49/51 mg b.i.d. 10. Plavix 75 mg daily. SOCIAL HISTORY: , retired. Denies alcohol, tobacco, or illicit drug use. He is a retired . FAMILY HISTORY: Noncontributory. PHYSICAL EXAMINATION: VITAL SIGNS: Reviewed in the emergency room and are in the chart. GENERAL: The patient is alert and oriented. Speech is clear. Affect is appropriate. He is in no apparent distress. Resting comfortably in bed during exam. NECK: Supple without jugular venous distention. Trachea is midline. No carotid bruits. LUNGS: Clear to auscultation bilaterally without wheezes, crackles, or rhonchi. Respirations are even and nonlabored. HEART: Heart rate is irregularly irregular with crisp S1 and S2. A left precordial device is seen and site is without reaction. ABDOMEN: Soft and nontender without palpable masses. Hepatojugular reflux is negative. There are no palpable masses. EXTREMITIES: Warm and dry to touch without clubbing, cyanosis, or edema. NEUROLOGIC: Nonfocal and grossly intact. Gait was not assessed. DATABASE: Telemetry shows sinus rhythm with [employer] pacing. DEVICE CHECK: The patient has a Medtronic XT HOU[employer]-D. Battery longevity is 2.7 years. Lead parameters are stable. Capture thresholds are stable. There are no findings consistent with lead damage. There is adequate sensing. Current mode is DDDR with a lower rate limit of 70. Underlying rhythm is sinus rhythm. There were 4 treated episodes of ventricular fibrillation. Longest atrial fibrillation episode is 46 seconds and burden is less than 0.1%. Device is functioning normally. There is no sign of lead damage. All ICD discharges were given as appropriate therapy for ventricular fibrillation. LABORATORY DATA: Hematology was unremarkable. Chemistry; potassium 4.3, creatinine 1.25. ALT and AST are within normal limits. Magnesium was not assessed. A 12-lead EKG personally reviewed, shows sequential AV pacing with [employer] therapy. QRS is 148 milliseconds, QTc is 513 milliseconds in the setting of widened QRS. IMPRESSION: 1. Ventricular fibrillation resulting in 4 ICD shocks, successfully restoring sinus rhythm. 2. Dilated cardiomyopathy and chronic systolic heart failure, well compensated, NYHA functional class II. No signs of fluid overload on physical exam. 3. Paroxysmal atrial fibrillation, currently quiescent. 4. Left atrial appendage closure with a Watchman, currently requires dual antiplatelet therapy with Plavix 75 mg daily and aspirin 81 mg daily. 5. Coronary artery disease with prior bypass grafting. PLAN AND RECOMMENDATIONS: Mr. Soto has recently received 4 shocks as appropriate treatment for ventricular fibrillation as detailed by the ICD report. His heart failure appears well compensated today. He has not had any recent illnesses. Given his history of coronary artery disease and prior bypass, I feel an ischemic workup is prudent. His electrolytes are within normal limits. My recommendation is to get him started on IV amiodarone with a bolus of 150 mg prior and p.o. taper to a goal of 200 mg daily within a month. He would be admitted and monitored as he undergoes amiodarone loading and possibly ischemic workup by Cardiology. This was discussed with Dr. Dasilva. Thank you for allowing me to participate in the care of this patient. Job ID: [id number]
[2018-12-30] MEDS ORDERED: Bivalirudin 250 MG VIAL ONE (08:28)
[2018-12-30] MEDS ORDERED: Adenosine 6 MG/2 ML VIAL ONE (09:18)
[2018-12-30] MEDS ORDERED: Morphine 2 MG/ML SYRINGE SLOW IVP PRN (09:46)
[2018-12-30] MEDS ORDERED: Morphine 4 MG/ML VIAL SLOW IVP PRN (09:46)
[2018-12-30] MEDS ORDERED: Amiodarone 200 MG TAB PO SCH (10:00)
[2018-12-30] MEDS ORDERED: Amiodarone 200 MG TAB ONE (10:22)
[2018-12-30] MEDS ORDERED: Iopamidol 370 76% 100 ML VIAL ONE (11:27)
[2018-12-30] MEDS ORDERED: Iopamidol 370 76% 50 ML VIAL FS ONE (11:27)
--- NOTE | 2018-12-30 13:37 | PDOC.HOSPP ---
- Subjective Encounter Date: 12/30/18 Encounter Time: 14:41 Subjective: heading to phlebotomy lab assistant - Objective Vital Signs & Weight: Vital Signs (12 hours) Temp Pulse Resp BP Pulse Ox 12/30/18 07:30 97.8 F 91 18 142/73 H 95 12/30/18 07:15 95 12/30/18 04:27 97.4 F L 87 16 157/76 H 93 L Weight Weight 180 lb 12.465 oz I&O: 12/29/18 12/30/18 12/31/18 06:59 06:59 06:59 Intake Total 1443 1018 Output Total 890 780 Balance 553 238 Result Diagrams: 12/31/18 05:18 12/31/18 05:18 Hospitalist ROS - Medication Medications: Active Medications Generic Name Dose Route Start Last Admin Trade Name Freq PRN Reason Stop Dose Admin Acetaminophen 650 mg 12/27/18 16:17 12/29/18 19:05 Tylenol PO 650 mg Q4H PRN Administration Headache/Fever/Mild Pain (1-3) Famotidine 20 mg 12/28/18 09:00 12/29/18 09:26 Pepcid PO 20 mg DAILY MARIUM Administration Simvastatin 10 mg 12/29/18 21:00 12/29/18 20:31 Zocor PO 10 mg HS MARIUM Administration - Exam General Appearance: awake alert Eye: PERRL, anicteric sclera ENT: normocephalic atraumatic, no oropharyngeal lesions, moist mucosa Neck: supple, symmetric, no JVD, no thyromegaly Heart: no murmur, no gallops, no rubs, normal peripheral pulses, irregular Respiratory: CTAB, no wheezes, no rales Gastrointestinal: soft, non-tender, non-distended, normal bowel sounds Extremities: no cyanosis, no clubbing, 1+ LE edema Skin: normal turgor, no lesions Neurological: cranial nerve grossly intact, normal sensation to touch, no weakness, no focal deficits Psychiatric: normal affect, normal behavior, A&O x 3 Hosp A/P (1) Ventricular fibrillation Code(s): I49.01 - VENTRICULAR FIBRILLATION Status: Acute (2) Syncope, cardiogenic Code(s): R55 - SYNCOPE AND COLLAPSE Status: Acute (3) CAD (coronary artery disease) Code(s): I25.10 - ATHSCL HEART DISEASE OF [place] CORONARY ARTERY W/O ANG PCTRS Status: Acute (4) Cardiomyopathy Code(s): I42.9 - CARDIOMYOPATHY, UNSPECIFIED Status: Acute (5) HTN (hypertension) Code(s): I10 - ESSENTIAL (PRIMARY) HYPERTENSION Status: Acute - Plan plan discussed w/ family 1. Syncope 2. VT s/p multiple AICD shocks, appropriate. 3. CAD 4. NSTEMI 5. Ischemic CM Ef at 25% PLAN: - Continue amiodarone drip. -[facility] today -Echo with EF 45-50% -Grade 2 diastolic dysfunction
[2018-12-30] MEDS ORDERED: Morphine 2 MG/ML SYRINGE ONE ×2 (17:48→19:31)
[2018-12-30] MEDS: Clopidogrel Bisulfate 75 MG TAB PO SCH (19:49)
[2018-12-30] MEDS: Aspirin 81 mg Enteric Coated Tablet PO SCH (19:49)
[2018-12-30] MEDS: Famotidine 20 MG TAB PO SCH (19:49)
[2018-12-30] MEDS: Sodium Chloride 0.9% 1,000 ML IV SCH (19:51)
[2018-12-30] MEDS: Amiodarone 200 MG TAB PO SCH (23:26)
[2018-12-30] MEDS: Simvastatin 5 MG TAB PO SCH (23:27)
[2018-12-31] MEDS: Sodium Chloride 0.9% 1,000 ML IV SCH (02:31)
[2018-12-31 05:56] LABS: #Eosinphils 0.1 thou/uL (0.0-0.7); #Lymphocytes 0.3 thou/uL (1.20-3.40); #Monocytes 0.8 thou/uL (0.11-0.59); %Basophils 0.6 % (0.0-1.0); %Eosinophils 0.9 % (0.0-10.0); %Lymphocytes 3.5 % (21.0-51.0); %Monocytes 10.1 % (0.0-10.0); %Neutrophils 84.9 % (42.0-75.0); Hemoglobin 12.3 g/dL (14.0-18.0); Mean Corpuscular HGB CONC 32.8 g/dL (32.0-36.0); Mean Corpuscular Hemoglobin 28.8 pg (27.0-31.0); Mean Corpuscular Volume 87.8 fL (78.0-98.0); Mean Platelet Volume 8.2 fL (7.4-10.4); Platelet Count 101 thou/uL (130-400); RBC Distribution Width 13.7 % (11.5-14.5); Red Blood Cell (RBC) Count 4.28 mill/uL (4.70-6.10); White Blood Cell (WBC) Count 8.2 thou/uL (4.8-10.8)
[2018-12-31 06:16] LABS: ALT (SGPT) 14 U/L (8-55); AST (SGOT) 17 U/L (5-34); Albumin 3.8 g/dL (3.4-4.8); Alkaline Phosphatase 64 U/L (40-110); Anion Gap 13 mmol/L (10-20); BUN (Urea Nitrogen) 15 mg/dL (8.4-25.7); Bilirubin, Total 1.8 mg/dL (0.2-1.2); Calc. Creatinine Clearance 61 mL/min (70-130); Calcium 9.1 mg/dL (7.8-10.44); Carbon Dioxide 22 mmol/L (23-31); Chloride 107 mmol/L (98-107); Estimated GFR-MDRD 73; Globulin 2.3 g/dL (2.4-3.5); Glucose 133 mg/dL (83-110); Potassium 4.4 mmol/L (3.5-5.1); Protein, Total 6.1 g/dL (5.8-8.1); Sodium 138 mmol/L (136-145)
[2018-12-31] MEDS: Amiodarone 200 MG TAB PO SCH ×2 (11:12→21:12)
[2018-12-31] MEDS: Famotidine 20 MG TAB PO SCH (11:12)
[2018-12-31] MEDS: Clopidogrel Bisulfate 75 MG TAB PO SCH (11:12)
[2018-12-31] MEDS: Aspirin 81 mg Enteric Coated Tablet PO SCH (11:12)
--- NOTE | 2018-12-31 14:47 | PDOC.HOSPP ---
- Subjective Encounter Date: 12/31/18 Encounter Time: 14:45 Subjective: feeling better, constipation resolved, walked some with PT - Objective Vital Signs & Weight: Vital Signs (12 hours) Temp Pulse Resp BP BP Pulse Ox 12/31/18 11:22 97.8 F 89 14 127/60 96 12/31/18 07:22 98.8 F 93 18 141/69 H 96 12/31/18 04:00 98.8 F 90 19 122/66 97 Weight Weight 182 lb 1.6 oz I&O: 12/30/18 12/31/18 01/01/19 06:59 06:59 06:59 Intake Total 1018 362 Output Total 780 500 Balance 238 -138 Result Diagrams: 12/31/18 05:18 12/31/18 05:18 Hospitalist ROS - Medication Medications: Active Medications Generic Name Dose Route Start Last Admin Trade Name Freq PRN Reason Stop Dose Admin Acetaminophen 650 mg 12/27/18 16:17 12/29/18 19:05 Tylenol PO 650 mg Q4H PRN Administration Headache/Fever/Mild Pain (1-3) Amiodarone HCl 400 mg 12/30/18 21:00 12/31/18 11:12 Cordarone PO 400 mg BID MARIUM Administration Aspirin 81 mg 12/30/18 09:00 12/31/18 11:12 Ecotrin PO 81 mg DAILY MARIUM Administration Clopidogrel Bisulfate 75 mg 12/30/18 09:00 12/31/18 11:12 Plavix PO 75 mg DAILY [facility] Administration Famotidine 20 mg 12/28/18 09:00 12/31/18 11:12 Pepcid PO 20 mg DAILY [facility]UM Administration Memantine 5 mg 12/30/18 09:00 12/31/18 11:13 Namenda PO 5 mg DAILY [facility] Administration Morphine Sulfate 2 mg 12/30/18 09:46 12/30/18 23:27 Morphine SLOW IVP 2 mg Q4H PRN Administration Moderate Chest Pain (4-6) Simvastatin 10 mg 12/29/18 21:00 12/30/18 23:27 Zocor PO 10 mg HS [facility]IUM Administration Sodium Chloride 10 ml 12/30/18 09:00 12/31/18 11:13 Flush - Normal Saline IVF 10 ml Q12HR MARIUM Administration - Exam General Appearance: NAD, awake alert Eye: PERRL, anicteric sclera ENT: normocephalic atraumatic, no oropharyngeal lesions, moist mucosa Neck: supple, symmetric, no JVD, no thyromegaly, no lymphadenopathy Heart: RRR, no murmur, no gallops, no rubs, normal peripheral pulses Respiratory: CTAB, no wheezes, no rales, no ronchi Gastrointestinal: soft, non-tender, non-distended, normal bowel sounds Extremities: no cyanosis, no clubbing, 1+ LE edema Neurological: cranial nerve grossly intact, normal sensation to touch, no weakness, no focal deficits Hosp A/P (1) Ventricular fibrillation Code(s): I49.01 - VENTRICULAR FIBRILLATION Status: Acute (2) Syncope, cardiogenic Code(s): R55 - SYNCOPE AND COLLAPSE Status: Acute (3) CAD (coronary artery disease) Code(s): I25.10 - ATHSCL HEART DISEASE OF [place] CORONARY ARTERY W/O ANG PCTRS Status: Acute Qualifiers: Coronary Disease-Associated Artery/Lesion type: bypass graft [place] vs. transplanted heart: [place] heart (4) Cardiomyopathy Code(s): I42.9 - CARDIOMYOPATHY, UNSPECIFIED Status: Acute (5) HTN (hypertension) Code(s): I10 - ESSENTIAL (PRIMARY) HYPERTENSION Status: Acute - Plan 1. Syncope 2. VT s/p multiple AICD shocks, appropriate. 3. CAD 4. NSTEMI 5. Ischemic CM Ef 45-50% PLAN: S/P LHC showing stensosi of the previous Bypass, it was restented by Dr. Morocho -Echo with EF 45-50% -Grade 2 diastolic dysfunction --Continue aspirin, Plavix and statin -Continue PT DC in am if patient is stronger and Dr. Morocho is ok with it Amio GTT to PO In Sinus Rhythm now Possible Afib with stenosis of previous bypass
--- NOTE | 2018-12-31 16:57 | PDOC.CPN ---
- Subjective Date: 12/31/18 Time: 08:00 Interval history: EP PROGRESS NOTE: 12/31/18 Follow up for rhythm and ICD management. No ICD shocks since admission. Somewhat confused this AM. No complaints and he feels well. - Review of Systems General: denies: fever/chills, night sweats, fatigue Respiratory: denies: cough, congestion, shortness of breath, exercise intolerance Cardiovascular: denies: chest pain, palpitation, orthopnea Gastrointestinal: denies: nausea, vomiting, diarrhea Musculoskeletal: denies: pain, stiffness, swelling Neurological: denies: numbness, syncope, weakness - Objective Allergies/Adverse Reactions: Allergies Allergy/AdvReac Type Severity Reaction Status Date / Time No Known Drug Allergies Allergy Verified 10/08/18 13:42 Visit Medications: Current Medications Acetaminophen (Tylenol) 650 mg PO Q4H PRN PRN Reason: Headache/Fever/Mild Pain (1-3) Last Admin: 12/29/18 19:05 Dose: 650 mg Hydrocodone Bitart/Acetaminophen ([place] 5/325) 1 tab PO Q4H PRN PRN Reason: Moderate Pain (4-6) Amiodarone HCl (Cordarone) 400 mg PO BID [facility] Last Admin: 12/31/18 11:12 Dose: 400 mg Aspirin (Ecotrin) 81 mg PO DAILY [facility] Last Admin: 12/31/18 11:12 Dose: 81 mg Bisacodyl (Dulcolax) 10 mg [place] DAILYPRN PRN PRN Reason: Constipation Calcium Carbonate (Tums) 1,000 mg PO Q4H PRN PRN Reason: Heartburn or Indigestion Clopidogrel Bisulfate (Plavix) 75 mg PO DAILY [facility] Last Admin: 12/31/18 11:12 Dose: 75 mg Famotidine (Pepcid) 20 mg PO DAILY [facility] Last Admin: 12/31/18 11:12 Dose: 20 mg Furosemide (Lasix) 40 mg PO DAILY[facility] Guaifenesin (Robitussin Sf) 200 mg PO Q4H PRN PRN Reason: Cough Labetalol HCl (Normodyne) 10 mg SLOW IVP Q4H PRN PRN Reason: SBP > 180 and HR >/= 70 Loperamide HCl (Imodium) 2 mg PO PRN PRN PRN Reason: Diarrhea/Loose Stools Loratadine (Claritin) 10 mg PO DAILYPRN PRN PRN Reason: Sinus Symptoms Memantine (Namenda) 5 mg PO DAILY [facility] Last Admin: 12/31/18 11:13 Dose: 5 mg Metoclopramide HCl (Reglan) 5 mg IVP Q4H PRN PRN Reason: Nausea Morphine Sulfate (Morphine) 2 mg SLOW IVP Q4H PRN PRN Reason: Moderate Chest Pain (4-6) Last Admin: 12/30/18 23:27 Dose: 2 mg Morphine Sulfate (Morphine) 4 mg SLOW IVP Q4H PRN PRN Reason: Severe Chest Pain (7-10) Nitroglycerin (Nitrostat) 0.4 mg SL Q5MIN PRN PRN Reason: Chest Pain Sacubitril/Valsartan (Entresto 49 Mg-51 Mg Tablet) 1 tab PO BID [facility] Senna/Docusate Sodium (Senokot S) 2 tab PO BIDPRN PRN PRN Reason: Constipation Simvastatin (Zocor) 10 mg PO HS [facility] Last Admin: 12/30/18 23:27 Dose: 10 mg Sodium Chloride ([place] Nasal [place] 0.65%) 0 ml EA NARE QIDPRN PRN PRN Reason: Nasal Congestion Sodium Chloride (Flush - Normal Saline) 10 ml IVF Q12HR [facility] Last Admin: 12/31/18 11:13 Dose: 10 ml Sodium Chloride (Flush - Normal Saline) 10 ml IVF PRN PRN PRN Reason: Saline Flush Throat Lozenges (Cepastat Lozenges) 1 paula PO Q2H PRN PRN Reason: Sore Throat Zolpidem Tartrate (Ambien) 5 mg PO HSPRN PRN PRN Reason: Insomnia Vital Signs & Weight: Vital Signs Temp Pulse Pulse Pulse Resp BP BP 12/31/18 15:38 97.7 F 91 14 12/31/18 11:29 88 92 139/66 171/77 H 12/31/18 11:22 97.8 F 89 14 12/31/18 07:22 98.8 F 93 18 BP BP Pulse Ox Pulse Ox Pulse Ox 12/31/18 15:38 136/69 100 12/31/18 11:29 97 98 12/31/18 11:22 127/60 96 12/31/18 07:22 141/69 H 96 Weight 182 lb 1.6 oz - Physical Exam General: appears well, no apparent distress, other (forgetful, oriented to person and place, not situation) HEENT: mucus membranes moist, normocephaly Neck: supple neck, midline trachea, no JVD/HJR, no masses, no bruit, no lymphadenopathy, no thromegaly Cardiac: regular rate and rhythm, no murmur, regular rate, regular rhythm Lungs: clear to auscultation, normal breath sounds, normal exam, no wheeze, rales, rhonchi Neuro: cranial nerve 2-12 intact, grossly intact, motor function intact, sensory function intact, negative rhomberg, coordination normal, no lateralizing findings Abdomen: unremarkable, active bowel sounds, soft, non-tender, no masses, no pulsations/bruits, no hepatosplenomegaly Extremities: no cyanosis, no clubbing, other: (LUE swollen from infiltrated IV ( normal saline per RN)) Skin: clear Musculoskeletal: normal range of motion, no pain, no fluid collection - Labs Result Diagrams: 12/31/18 05:18 12/31/18 05:18 Troponin/CKMB CK-MB (CK-2) 13.3 ng/mL (0-6.6) H* 12/27/18 13:22 Troponin I 1.532 ng/mL (< 0.028) H* 12/27/18 19:49 - Telemetry Sinus rhythms and dysrhythmias: sinus rhythm - Assessment/Plan Assessment/Plan: 1. Ventricular fibrillation - terminated with ICD defibrillation - amiodarone loading: continue and DC with PO taper. Anticpate 3 month therapy after PCI - in the setting of CAD with PCI on 12/30/18. 2. Cardiomopathy 3. Paroxysmal AF -currently quiescent 4. BiV ICD -normal function 5. Left atrial appendage closure with watchman -continue DAPT with ASA and plavix per [facility] protocol Continue amio loading and taper upon DC to goal of 200mg PO QD by 1 month. Anticipate 3 months on Amio after PCI. Continue DAPT as mentioned. OK for DC by EP.
[2018-12-31] MEDS: Simvastatin 5 MG TAB PO SCH (21:12)
[2018-12-31] MEDS: Sacubitril 49 MG/Valsartan 51 MG TABLET PO SCH (21:12)
[2019-01-01 06:43] LABS: Anion Gap 11 mmol/L (10-20); BUN (Urea Nitrogen) 20 mg/dL (8.4-25.7); Calc. Creatinine Clearance 62 mL/min (70-130); Calcium 8.9 mg/dL (7.8-10.44); Carbon Dioxide 23 mmol/L (23-31); Chloride 107 mmol/L (98-107); Estimated GFR-MDRD 74; Glucose 102 mg/dL (83-110); Potassium 4.1 mmol/L (3.5-5.1); Sodium 137 mmol/L (136-145)
[2019-01-01] MEDS ORDERED: Furosemide 40 MG TAB PO SCH (07:30)
[2019-01-01] MEDS: Clopidogrel Bisulfate 75 MG TAB PO SCH (08:39)
[2019-01-01] MEDS: Amiodarone 200 MG TAB PO SCH (08:39)
[2019-01-01] MEDS: Aspirin 81 mg Enteric Coated Tablet PO SCH (08:39)
[2019-01-01] MEDS: Famotidine 20 MG TAB PO SCH (08:39)
[2019-01-01] MEDS: Sacubitril 49 MG/Valsartan 51 MG TABLET PO SCH (08:40)
[2019-01-01 12:54] VITALS: BP 120/64; TEMP 97.9
--- NOTE | 2019-01-01 14:18 | PDOC.CPN ---
- Subjective Date: 01/01/19 Time: 11:00 Interval history: EP PROGRESS NOTE: 01/01/19 Follow up for rhythm and ICD management. No ICD shocks since admission. Family bedside. Mentally, less confused today. No complaints and he feels well. - Review of Systems General: denies: fever/chills, weight/appetite/sleep changes, night sweats, fatigue Respiratory: denies: cough, congestion, shortness of breath, exercise intolerance Cardiovascular: denies: chest pain, palpitation, edema, paroxysmal nocturnal dyspnea, orthopnea Gastrointestinal: denies: nausea, vomiting, diarrhea, constipation, abd pain, GI bleeding Musculoskeletal: denies: pain, tenderness, stiffness, swelling, arthritis/ arthralgias Neurological: denies: numbness, syncope, seizure, weakness - Objective Allergies/Adverse Reactions: Allergies Allergy/AdvReac Type Severity Reaction Status Date / Time No Known Drug Allergies Allergy Verified 10/08/18 13:42 Vital Signs & Weight: Vital Signs Temp Pulse Resp BP Pulse Ox 01/01/19 12:00 97.9 F 74 16 120/64 96 01/01/19 08:00 98.1 F 72 17 114/62 95 01/01/19 04:00 98.0 F 84 18 114/61 97 Weight 179 lb 6.4 oz - CHADS-VASc Congestive heart failure: 1 Hypertension: 1 Age >75: 2 Diabetes mellitus: 1 Vascular disease: 1 Risk Score: 6 - Quality Measures Condition: Atrial Fibrillation/Flutter (hx or current) CV meds: ASA: Yes, Plavix/Effient/Brilinta: Yes - Medication Contraindications No Anticoagulant reason: Treatment not indicated (has Watchman for SERENITY closure. Only requires DAPT with plavix and ASA for now) - Physical Exam General: alert & oriented x3, appears well, no apparent distress HEENT: mucus membranes moist, normocephaly Neck: supple neck, midline trachea, no JVD/HJR, no masses, no bruit, no lymphadenopathy, no thromegaly Cardiac: regular rate and rhythm, no murmur, regular rate, regular rhythm Lungs: clear to auscultation, normal breath sounds, normal exam, no wheeze, rales, rhonchi Neuro: cranial nerve 2-12 intact, grossly intact, no lateralizing findings Abdomen: unremarkable, active bowel sounds, soft Extremities: no cyanosis, no clubbing, no edema - Labs Result Diagrams: 12/31/18 05:18 01/01/19 05:48 Troponin/CKMB CK-MB (CK-2) 13.3 ng/mL (0-6.6) H* 12/27/18 13:22 Troponin I 1.532 ng/mL (< 0.028) H* 12/27/18 19:49 - Telemetry Sinus rhythms and dysrhythmias: sinus rhythm (EDUCATION DIRECTOR pacing) - Assessment/Plan Assessment/Plan: 1. Ventricular fibrillation - terminated with ICD defibrillation - amiodarone loading: continue and DC with PO taper. Anticipate 2-3 month amio therapy after PCI - in the setting of CAD with PCI on 12/30/18. 2. Cardiomopathy 3. Paroxysmal AF -currently quiescent 4. BiV ICD -normal function 5. Left atrial appendage closure with watchman -continue DAPT with ASA and plavix per [facility] protocol Continue amio loading and taper upon DC to goal of 200mg PO QD by 1 month. Anticipate 2-3 months on Amio after PCI. Continue DAPT as mentioned. OK for DC by EP. 6 week follow up will be arranged.
--- NOTE | 2019-01-01 14:40 | DIS ---
DATE OF ADMISSION: 12/27/2018 DATE OF DISCHARGE: 01/01/2019 PRIMARY CARE PHYSICIAN: Mike Heart MD DISCHARGE DIAGNOSES: 1. Recurrent ventricular tachycardia. 2. Recurrent ventricular fibrillation. 3. Cardiogenic syncope. 4. Automatic implantable cardioverter defibrillator shocks. 5. [id number] myocardial infarction. 6. Prior history of cardiac arrest. 7. Coronary artery disease, status post coronary artery bypass grafting. 8. Ischemic cardiomyopathy with ejection fraction of 25%. 9. Status post drug-eluting stent placement. 10. Paroxysmal atrial fibrillation. 11. Status post left atrial appendage closure with Watchman procedure. CONSULTS: 1. Cardiology. 2. Electrophysiology. HOSPITAL COURSE: An 88-year-old male with known history of ischemic cardiomyopathy, status post prior cardiac arrest with AICD in place, admitted due to recurrent syncope and collapse as well as activation of AICD shocks. Interrogation of the AICD showed episodes of ventricular tachycardia and ventricular fibrillation, hence the patient was started on amiodarone infusion. The patient also was found to have elevated troponin and impression of [id number] myocardial infarction was made. The patient later had left heart catheterization with drug-eluting stent placement. Postprocedure, the patient remained stable and was subsequently discharged home. PHYSICAL EXAMINATION: VITAL SIGNS: Temperature 97.9, pulse 74, respiratory rate 16, SpO2 of 96% on room air, and blood pressure is 120/64. GENERAL: Elderly male, in no obvious distress. Afebrile. Anicteric. Acyanotic. HEENT: Normocephalic and atraumatic. CARDIOVASCULAR: Regular rhythm and rate with normal heart sounds 1 and 2. RESPIRATORY: Fair air entry bilaterally with no obvious crackle or rhonchi or use of accessory muscles. GI: Abdomen is full, soft, nontender, and nondistended with normal bowel sounds. EXTREMITIES: Grossly normal looking, atraumatic with no obvious edema or erythema. REAL ESTATE UNDERWRITER: Conscious, alert, and oriented x3 with appropriate mental status. Mild memory lapse is noted. DISCHARGE CONDITION: Improved. DISCHARGE DISPOSITION: Home. DISCHARGE FOLLOWUP: 1. Cardiac rehab on January 13 at 1:15 p.m. 2. With primary care physician Dr. Heart on January 07 at 3:45 p.m. 3. With production supply equipment tender, Dr. Chino Morocho on January 13 at 9:15 a.m. 4. The patient also is to follow up with molding cutter, Dr. Gonzalo Manuel. DISCHARGE MEDICATIONS: 1. Aspirin 81 mg p.o. daily. 2. Plavix 75 mg p.o. daily. 3. Furosemide 40 mg p.o. daily. 4. Namenda 5 mg p.o. daily. 5. Entresto 49/51 one tablet p.o. b.i.d. 6. Simvastatin 10 mg p.o. daily at bedtime. 7. CoQ10 of 200 mg p.o. daily. 8. Amiodarone 400 mg b.i.d. for 2 weeks, then 200 mg b.i.d. for 2 weeks, then 200 mg daily. 9. Carvedilol 12.5 mg p.o. b.i.d. This discharge took more than 38 minutes. Job ID: [id number]
--- NOTE | 2019-01-01 18:46 | EKG ---
Test Reason : POST STENT Blood Pressure : / mmHG Vent. Rate : 089 BPM Atrial Rate : 089 BPM P-R Int : 142 ms QRS Dur : 144 ms QT Int : 422 ms P-R-T Axes : 070 -33 138 degrees QTc Int : 513 ms AV sequential or dual chamber electronic pacemaker When compared with ECG of 27-DEC-2018 09:19, (Unconfirmed) Vent. rate has increased BY [address] Marlene YING ([id number]) on 01/01/2019 6:46:12 PM Referred By: RIO Confirmed By:DR. Marlene YING
== END 2019-01-01 13:07 | disposition home or self-care (01) | DRG 246 ==
LOC: ERS 09:09 → 2NO 14:28
PROVIDERS: ADMIT Internal Medicine; ATTEND Internal Medicine
PROC: 4B02XTZ Measurement of Cardiac Defibrillator, External Approach (ICD-10-PCS; 2018-12-27)
PROC: 027035Z Dilation of Coronary Artery, One Artery with Two Drug-eluting Intraluminal Devices, Percutaneous Approach (ICD-10-PCS; principal; 2018-12-30)
PROC: 4A023N7 Measurement of Cardiac Sampling and Pressure, Left Heart, Percutaneous Approach (ICD-10-PCS; 2018-12-30)
PROC: B2151ZZ Fluoroscopy of Left Heart using Low Osmolar Contrast (ICD-10-PCS; 2018-12-30)
PROC: B2181ZZ Fluoroscopy of Left Internal Mammary Bypass Graft using Low Osmolar Contrast (ICD-10-PCS; 2018-12-30)
PROC: B2111ZZ Fluoroscopy of Multiple Coronary Arteries using Low Osmolar Contrast (ICD-10-PCS; 2018-12-30)
DX: I49.01 Ventricular fibrillation (principal); I21.4 Non-ST elevation (NSTEMI) myocardial infarction; I50.22 Chronic systolic (congestive) heart failure; I48.0 Paroxysmal atrial fibrillation; C61 Malignant neoplasm of prostate; I44.7 Left bundle-branch block, unspecified; I25.10 Atherosclerotic heart disease of native coronary artery without angina pectoris; E78.5 Hyperlipidemia, unspecified; I11.0 Hypertensive heart disease with heart failure; D69.6 Thrombocytopenia, unspecified; I47.2 Ventricular tachycardia; I25.5 Ischemic cardiomyopathy; I73.9 Peripheral vascular disease, unspecified; Z95.1 Presence of aortocoronary bypass graft; Z95.5 Presence of coronary angioplasty implant and graft; Z90.49 Acquired absence of other specified parts of digestive tract; Z95.810 Presence of automatic (implantable) cardiac defibrillator; Z79.02 Long term (current) use of antithrombotics/antiplatelets; Z79.899 Other long term (current) drug therapy; Z87.891 Personal history of nicotine dependence; Z79.82 Long term (current) use of aspirin; Z91.81 History of falling
CPT/HCPCS: 36415; 70450; 72125; 80048; 80053; 81001; 82553; 83605; 83735; 84132; 84443; 84484; 85025; 85347; 86850; 86900; 86901; 92928; 92929; 93005; 93010; 93306; 93459; 93798; 94760; 96365; 96366; 96376; 99152; 99153; C1725; C1769; C1874; C1887; C9600; C9601; J0153; J0282; J0583; J1644; J2001; J2250; J2270; J3010; J7070; Q9967